=== PATIENT | male | born 1945 | race Caucasian/White ===

== ENCOUNTER → 2023-10-23 15:42 | Outpatient (REF) | payer OTHER, SELFPAY | LOC: RAD 15:42 | PROVIDERS: ATTENDING PHYSICIAN Student in an Organized Health Care Education/Training Program | DX: M25.572 Pain in left ankle and joints of left foot (principal) | CPT/HCPCS: 73610 ==

== ENCOUNTER 2024-02-14 14:52 | Emergency (ER) | payer OTHER, SELFPAY ==
[2024-02-14 14:54] VITALS: BP 147/74
--- NOTE | 2024-02-14 15:52 | ED.GENMED ---
Addendum entered and electronically signed by Gilles Rollins PA-C 02/22/24 18:04:
Diagnosis code was incorrectly entered for right hand. Please note, the injury occured to the left hand and diagnosis was changed to reflect this.
Original Note:
History of Present Illness
General
Chief Complaint: Musculo-Skeletal Complaint
Source: patient
Time Seen by Provider: 02/14/24 15:42
History of Present Illness
History of Present Illness:
78-year-old male presenting the emergency department for evaluation after he injured his left hand while closing screen door on Thursday evening. Today still had pain in between the left thumb and index finger prompting him to come to the ER
further evaluation. He is right-hand dominant, no other injuries were sustained, denies any abrasions or lacerations
Past History
Past History
ED Past Medical History: Arrthythmia, COPD (tia), HTN, Hypercholesterolemia, NIDDM and Other (BPH, hematuria, bladder stone)
ED Past Surgical History: Appendectomy, Cholecystectomy, Urological and Other (AAA repair)
Social History
Tobacco: Non-smoker
Alcohol: None
Drug: None
Personal:
Living: with family
Employment: Retired
Family History
Family History: Other (Noncontributory)
Review of Systems
Review of Systems
All Other Systems: ROS reviewed and negative except as documented in HPI and ROS
Phy Exam
Physical Exam
Physical Exam:
GENERAL: Alert , in no apparent distress
EYE: conjunctiva clear
Head: Normocephalic atraumatic
NECK: Supple,
ENT: mmm.
LUNGS: no acute respiratory distress
NEUROLOGICAL: Alert and oriented
SKIN: Warm and dry, skin intact.
MUSCULOSKELETAL: Left hand: No obvious deformity, erythema, edema, ecchymosis, abrasions or lacerations. Patient does have some mild tenderness over the MCP joint of the left thumb but has full range of motion without any difficulty. Sensation is
grossly intact to light touch. No other abnormalities appreciated
PSYCH: Normal and appropriate interaction.
Scores
Heart Failure Risk
Heart Failure Risk Score: Not Applicable
Heart Score for Chest Pain Patients
STEMI patient?: Not applicable
Withdrawal Assessment of Alcohol
Withdrawal Assessment Completed?: Not applicable
Course
Orders/Labs/Results
Orders:
Orders
02/14/24 14:59
Hand, Left 3 View [CR Hand - Left Min 3 Views] Urgent
Comment:
Reason For Exam: injury
Vital Signs
Initial and Last Documented VS:
Initial Vital Signs
Temp Pulse Resp BP Pulse Ox
98.3 F 73 16 147/74 98
02/14/24 14:54 02/14/24 14:54 02/14/24 14:54 02/14/24 14:54 02/14/24 14:54
Last Documented Vital Signs
Temp Pulse Resp BP Pulse Ox
98.3 F 73 16 147/74 98
02/14/24 14:54 02/14/24 14:54 02/14/24 14:54 02/14/24 14:54 02/14/24 14:54
MDM/Problems Addressed
Differential Diagnosis Includes:
Contusion, sprain, fracture
MDM/Problems Addressed:
78-year-old male present emergency department for evaluation after accidentally injuring his left hand while attempting to close a screen door the night prior. Still with some mild pain and swelling. X-ray was ordered from triage and ultimately
shows no fracture. Suspect contusion. NSAIDs/Tylenol as needed for pain. Otherwise stable for discharge home and outpatient management.
*Radiology
Radiology exam reviewed: preliminary read by ED provider (No fracture)
*Pulse Oximetry
Patient hypoxic: no
*Critical Care Note
Total Time (30-74mins, 75-104mins- exclusive of procedures): Not Applicable
ED Attending Note
-
Portions of this chart may have been created with voice recognition software.� Occasional wrong word or��sound alike� substitutions may have occurred due to the inherent limitations of voice recognition software.
Discharge Plan
Departure
Patient Disposition: Home (Routine Discharge)
Date of Disposition: 02/14/24
Time of Disposition: 15:52
Patient with high blood pressure during this ER visit?: Yes
Discharge Problem:
Contusion of right hand
Instructions: Contusion (DC)
Prescriptions:
No Action
simvastatin 20 MG tablet
20 mg PO HS
metformin 1,000 MG tablet
1,000 mg PO BID@0800,1700
glipizide 5 MG tablet
5 mg PO BID@0800,1700
gabapentin 300 MG capsule
300 mg PO BID
lisinopril 10 MG tablet
10 mg PO DAILY
cyanocobalamin (vitamin B-12) 1,000 mcg Tablet
1,000 mcg PO DAILY
atenolol 50 mg Tablet
25 mg PO DAILY
Trelegy Ellipta 100-62.5-25 mcg blister with device
1 inh INHALATION R DAILY
tolterodine 4 MG capsule,extended release 24hr
4 mg PO DAILY
Eliquis 5 mg Tablet
5 mg PO BID Qty: 60 0RF
meclizine 25 mg tablet
25 mg PO TID PRN (Reason: dizziness) Qty: 10 0RF
acetaminophen [Tylenol Extra Strength] 500 mg Tablet
500 mg PO TIDPRN PRN (Reason: mild pain)
albuterol sulfate 90 mcg/actuation Hfa Aerosol Inhaler
2 puff INHALATION R Q4HPRN PRN (Reason: sob)
cefdinir 300 mg Capsule
300 mg PO Q12 5 Days Qty: 10 0RF
prednisone 10 mg Tablet
See Rx Instructions .ROUTE .COMPLEX Qty: 30 0RF
Rx Instructions:
Take By Mouth:
40 mg daily x3 days, 30 mg daily x3 days,
20 mg daily x3 days, 10 mg daily x3 days.
Referrals:
Carli Morgan MD [Family Provider] -
Interventions
Interventions:
*Risk Screen - Suicide Last Done: 02/14/24 14:54
*General Assessment Last Done: 02/14/24 14:54
*Neglect/Abuse Screening Last Done: 02/14/24 14:57
*Nursing Disposition Last Done: 02/14/24 15:56
ED-Musculoskeletal Assessment Last Done: 02/14/24 15:55
Discharge Date and Time
Discharge Date/Time: 02/14/24 15:57
Print Language: TURKISH
== END 2024-02-14 15:57 | disposition home or self-care (01) ==
LOC: EMR 14:52
PROVIDERS: EMERGENCY PHYSICIAN Emergency Medicine; FAMILY PHYSICIAN Student in an Organized Health Care Education/Training Program
DX: S60.222A Contusion of left hand, initial encounter (principal); W23.2XXA Caught, crushed, jammed or pinched between a moving and stationary object, initial encounter; I10 Essential (primary) hypertension
CPT/HCPCS: 99283; 73130

== ENCOUNTER → 2024-08-27 07:16 | Outpatient (REF) | payer OTHER, SELFPAY | LOC: RAD 07:16 | PROVIDERS: ATTENDING PHYSICIAN Student in an Organized Health Care Education/Training Program | DX: R05.1 Acute cough (principal); R06.02 Shortness of breath | CPT/HCPCS: 71046 ==

== ENCOUNTER → 2024-11-07 16:22 | Outpatient (REF) | payer OTHER, SELFPAY | LOC: RAD 16:22 | PROVIDERS: ATTENDING PHYSICIAN Internal Medicine | DX: E11.69 Type 2 diabetes mellitus with other specified complication (principal); I87.2 Venous insufficiency (chronic) (peripheral); R60.0 Localized edema | CPT/HCPCS: 93971 ==

== ENCOUNTER 2024-11-16 05:13 | Emergency (ER) | payer OTHER, SELFPAY ==
[2024-11-16 05:17] VITALS: BP 157/83; BMI 33.1
[2024-11-16 05:21] LABS: Glucose - Point of Care 227 mg/dl (70-99)
--- NOTE | 2024-11-16 07:02 | ED.GENMED ---
History of Present Illness
General
Chief Complaint: Blood Sugar Problem
Source: patient
Exam Limitations: none
Time Seen by Provider: 11/16/24 05:17
Nursing documentation reviewed up to this point in time: agreed with
History of Present Illness
History of Present Illness:
79-year-old male with past medical history of diabetes on metformin, COPD, abdominal aortic aneurysm, hypertension, hyperlipidemia presents emergency department today with concerns of hyperglycemia. Patient states that he takes his blood sugar
daily in the morning he reported that his blood sugar was 198 upon awakening this morning. Patient states this concerned him and he has not had sugars as high as this before. Patient states he subsequently went to eat a bagel for breakfast and
noted that his sugar jumped up to around the 230s. Patient was concerned because he believes that this level could cause a stroke and so he reported to emergency department. He denies any nausea or vomiting, denies any fevers or chills. He denies
any chest pain or shortness of breath. He denies any lightheadedness or dizziness.
Past History
Past History
ED Past Medical History: Arrthythmia, COPD (tia), HTN, Hypercholesterolemia, NIDDM and Other (BPH, hematuria, bladder stone)
ED Past Surgical History: Appendectomy, Cholecystectomy, Urological and Other (AAA repair)
Social History
Tobacco: Non-smoker
Alcohol: None
Drug: None
Personal:
Living: with family
Employment: Retired
Family History
Family History: Other (Noncontributory)
Review of Systems
Review of Systems
All Other Systems: ROS reviewed and negative except as documented in HPI and ROS
Phy Exam
Physical Exam
Physical Exam:
General: Patient is well appearing and in no acute distress; non-toxic
Skin: Warm and dry, no rashes or lesions
Head: Normocephalic, atraumatic
Eyes: Sclera non-icteric. EOMs intact.
Cardiac: Regular rate and rhythm, no murmurs
Peripheral Vascular: No lower extremity swelling or
Pulm: Normal respiratory effort, no wheezes, rales, rhonchi
Abdomen: No abdominal tenderness to palpation
Neuro: CN II-XII intact, no focal neurologic deficits.
Psychiatric: Appropriate mood and affect.
Course
Orders/Labs/Results
Orders:
Abnormal Lab Results
11/16/24
05:18
POC Glucose 227 H mg/dl
(70-99)
Vital Signs
Initial and Last Documented VS:
Initial Vital Signs
Temp Pulse Resp BP Pulse Ox
97.7 F 86 22 157/83 97
11/16/24 05:17 11/16/24 05:17 11/16/24 05:17 11/16/24 05:17 11/16/24 05:17
Last Documented Vital Signs
Temp Pulse Resp BP Pulse Ox
97.7 F 86 22 157/83 97
11/16/24 05:17 11/16/24 05:17 11/16/24 05:17 11/16/24 05:17 11/16/24 05:30
MDM/Problems Addressed
Differential Diagnosis Includes:
Hyperglycemia
MDM/Problems Addressed:
79-year-old male presents emergency department today with concerns of hyperglycemia. His blood sugar did not increase following eating a carb heavy meal. I explained the patient that this is to be expected. Patient is concerned because she never
had sugar this high before. Does take metformin. We had a long discussion about concerning blood sugar levels and what symptoms to look out for when he should report to emergency department. Considering patient is well appearing in no acute
distress has no active symptoms at this time, I do not feel that lab work is necessary at this time. I did stress that patient should take his recorded log of blood sugar levels to his primary doctor for appointment this week and perhaps he may
need adjustment in his medications. Patient stressed understanding. Patient stable for discharge. Case reviewed with my attending.
*Critical Care Note
Total Time (30-74mins, 75-104mins- exclusive of procedures): Not Applicable
ED Attending Note
-
Portions of this chart may have been created with voice recognition software.� Occasional wrong word or��sound alike� substitutions may have occurred due to the inherent limitations of voice recognition software.
Discharge Plan
Departure
Patient Disposition: Home (Routine Discharge)
Date of Disposition: 11/16/24
Time of Disposition: 06:14
Patient with high blood pressure during this ER visit?: Yes
Condition: Good
Discharge Problem:
Acute hyperglycemia, Type 2 diabetes mellitus
Instructions: High blood sugar in adults - ED discharge instructions, BLOOD PRESSURE
Prescriptions:
No Action
simvastatin 20 MG tablet
20 mg PO HS
metformin 1,000 MG tablet
1,000 mg PO BID@0800,1700
glipizide 5 MG tablet
5 mg PO BID@0800,1700
gabapentin 300 MG capsule
300 mg PO BID
lisinopril 10 MG tablet
10 mg PO DAILY
cyanocobalamin (vitamin B-12) 1,000 mcg Tablet
1,000 mcg PO DAILY
atenolol 50 mg Tablet
25 mg PO DAILY
Trelegy Ellipta 100-62.5-25 mcg blister with device
1 inh INHALATION R DAILY
tolterodine 4 MG capsule,extended release 24hr
4 mg PO DAILY
Eliquis 5 mg Tablet
5 mg PO BID Qty: 60 0RF
acetaminophen [Tylenol Extra Strength] 500 mg Tablet
500 mg PO TIDPRN PRN (Reason: mild pain)
Referrals:
UNKNOWN - PT DOES,NOT KNOW [Family Provider] -
Activity Restrictions/Additional Instructions:
Please bring your log of blood sugar readings to your primary care provider. Please call today for an appointment. It is possible that your medications may need to be adjusted.
PLEASE RETURN TO EMERGENCY DEPARTMENT SHOULD YOU DEVELOP FEVERS OR CHILLS, ABDOMINAL PAIN, CHEST PAIN CONFUSION, SEIZURE-LIKE ACTIVITY, NAUSEA OR VOMITING, CONFUSION, OR ANY OTHER SIGNS OR SYMPTOMS WORRISOME TO YOU.
Interventions
Interventions:
*Risk Screen - Suicide Last Done: 11/16/24 05:17
*General Assessment Last Done: 11/16/24 05:17
*Neglect/Abuse Screening Last Done: 11/16/24 05:17
*ED COVID-19 Vaccine History Last Done: 11/16/24 05:25
*Nursing Disposition Last Done: 11/16/24 06:32
ED- Neurological Assessment Last Done: 11/16/24 05:25
Discharge Date and Time
Discharge Date/Time: 11/16/24 06:33
Print Language: CITIZEN OF [place]
== END 2024-11-16 06:33 | disposition home or self-care (01) ==
LOC: EMR 05:13
PROVIDERS: EMERGENCY PHYSICIAN Student in an Organized Health Care Education/Training Program
DX: E11.65 Type 2 diabetes mellitus with hyperglycemia (principal); I10 Essential (primary) hypertension; E78.00 Pure hypercholesterolemia, unspecified
CPT/HCPCS: 99282; 82962

== ENCOUNTER → 2025-02-08 11:43 | Outpatient (REF) | payer OTHER, SELFPAY | LOC: RAD 11:43 | PROVIDERS: ATTENDING PHYSICIAN Student in an Organized Health Care Education/Training Program | DX: M79.672 Pain in left foot (principal); M79.89 Other specified soft tissue disorders | CPT/HCPCS: 73630 ==

== ENCOUNTER → 2025-02-21 07:23 | Outpatient (REF) | payer OTHER, SELFPAY | LOC: RAD 07:23 | PROVIDERS: ATTENDING PHYSICIAN Student in an Organized Health Care Education/Training Program | DX: M79.89 Other specified soft tissue disorders (principal); M79.672 Pain in left foot | CPT/HCPCS: 93971 ==

== ENCOUNTER → 2025-02-22 10:07 | Outpatient (REF) | payer OTHER, SELFPAY | LOC: RAD 10:07 | PROVIDERS: ATTENDING PHYSICIAN Student in an Organized Health Care Education/Training Program | DX: M79.672 Pain in left foot (principal); M79.89 Other specified soft tissue disorders | CPT/HCPCS: 93922; 93925 ==

== ENCOUNTER 2025-04-12 08:44 | Emergency (ER) | payer OTHER, SELFPAY ==
[2025-04-12 08:48] VITALS: BP 150/72
[2025-04-12 09:00] VITALS: BP 143/72
--- NOTE | 2025-04-12 09:20 | ED.GENMED ---
History of Present Illness
General
Chief Complaint: Cardiac Symptoms
Source: patient
Time Seen by Provider: 04/12/25 09:09
History of Present Illness
History of Present Illness:
79-year-old male with past medical history of CVA, COPD, atrial fibrillation, status post AAA repair, hypertension, hyperlipidemia, [id number] diabetes presenting to the emergency department for evaluation of left shoulder pain that has
been ongoing for 1 week, overnight and into this morning the pain is now within his chest and radiating down his left arm which is what prompted him to come to the ER this morning. Patient initially stated the pain does not seem to be exacerbated
or alleviated by anything but at the end of the exam patient did mention to me that laying flat seem to have made the symptoms worse and radiated down his left arm more. He cannot think of any triggers that may have precipitated the pain. He
denies any other associated symptoms including shortness of breath, palpitations, diaphoresis, exertional dyspnea, cough, fevers or infectious symptoms, lower extremity edema, abdominal pain, nausea, vomiting. Patient follows with automotive welder,
Zayra. He does report going on an annual basis, cannot remember the last time he did get an echocardiogram or stress test. Social history was noted for former smoker (quit 5 years ago) and former alcohol use but has not had any alcoholic beverages
in over 30 years.
Past History
Past History
ED Past Medical History: Arrthythmia, COPD (tia), HTN, Hypercholesterolemia, NIDDM and Other (BPH, hematuria, bladder stone)
ED Past Surgical History: Appendectomy, Cholecystectomy, Urological and Other (AAA repair)
Social History
Tobacco: Former smoker
Alcohol: None
Drug: None
Personal:
Living: with family
Employment: Retired
Family History
Family History: Other (Noncontributory)
Review of Systems
Review of Systems
All Other Systems: ROS reviewed and negative except as documented in HPI and ROS
Phy Exam
Physical Exam
Physical Exam:
GENERAL: Alert , in no apparent distress
HEAD: Normocephalic atraumatic
EYE: Clear conjunctiva
NECK: Supple
ENT: o/p clr, mmm.
CARDIAC: Regular rate and rhythm .
LUNGS: Clear breath sounds bilaterally, no acute respiratory distress, no wheezes/rales/rhonchi
ABDOMEN: Soft, without focal tenderness, no r/g, no cvat
NEUROLOGICAL: Alert and oriented, no focal neuro deficits
SKIN: Warm and dry, dusky changes to the bilateral upper extremities is baseline per the patient when
MUSCULOSKELETAL: Trace ankle bilateral edema, well perfused.
PSYCH: Normal and appropriate interaction.
Scores
Heart Failure Risk
Heart Failure Risk Score: Not Applicable
Heart Score for Chest Pain Patients
STEMI patient?: No
History: Moderately Suspicious
ECG: Normal
Age: >/= 65 years
Risk Factors: >/= 3 Risk Factors or History of CAD
Troponin: </= Normal Limit
Heart Score for Chest Pain Patients: 5
Heart Score Risk: 20.3% MACE over next 6 weeks
Withdrawal Assessment of Alcohol
Withdrawal Assessment Completed?: Not applicable
Course
Orders/Labs/Results
Orders:
Orders
04/12/25
Electrocardiogram (*1) Stat
Comment: DONE
04/12/25 08:45
EKG [Electrocardiogram (*1)] Urgent
Reason for Study: Chest Pain
EKG- Treatment ONCE
04/12/25 09:10
CR Chest - 2 Views Urgent
Comment:
Reason For Exam: shoulder/chest pain
04/12/25 09:57
Complete Blood Count/With Diff Urgent
Comprehensive Metabolic Panel Urgent
Troponin I Urgent
04/12/25 14:04
Troponin I Urgent
Abnormal Lab Results
04/12/25
09:57
MCV 94.8 H fL
(80.0-94.0)
MCHC 32.7 L g/dL
(33.0-37.0)
MPV 10.9 H fL
(7.4-10.4)
Abs Immat Gran (auto) 0.1 H 10^3/uL
(0-0.05)
Absolute Lymphs (auto) 1.1 L 10^3/uL
(1.2-3.4)
Absolute Monos (auto) 0.8 H 10^3/uL
(0.1-0.6)
Immature Gran % 0.8 H %
(0-0.5)
Lymphocytes % 14.4 L %
(20.5-51.1)
Monocytes % 11.0 H %
(1.7-9.3)
Chloride 109 H mmol/L
(98-107)
BUN 35 H mg/dl
(9-20)
04/12/25 09:57
04/12/25 09:57
Vital Signs
Initial and Last Documented VS:
Initial Vital Signs
Temp Pulse Resp BP Pulse Ox
97.5 F 70 18 150/72 97
04/12/25 08:48 04/12/25 08:48 04/12/25 08:48 04/12/25 08:48 04/12/25 08:48
Last Documented Vital Signs
Temp Pulse Resp BP Pulse Ox
97.5 F 68 19 120/67 95
04/12/25 08:48 04/12/25 13:45 04/12/25 13:45 04/12/25 13:00 04/12/25 15:00
MDM/Problems Addressed
Differential Diagnosis Includes:
Atypical ACS presentation
Dissection/aneurysm
musculoskeletal shoulder pain
Shingles
Pneumothorax
No symptoms to suggest infectious etiology
valvular dysfunction
Cardiac arrhythmia
MDM/Problems Addressed:
79-year-old male presenting the ER for evaluation of left shoulder pain that has been ongoing for 1 week, last night and into this morning pain now within the chest and radiating down the left arm. States he feels better now after taking 2 Tylenol
around 5 AM but still with the discomfort. No other associated symptoms or anginal equivalents. EKG done in triage is nonischemic and without any ectopy. Will check labs and chest x-ray. Disposition pending.
*Pulse Oximetry
SaO2: 97
Oxygen Mode of Delivery: Room air
Patient hypoxic: no
*EKG
Heart Rate: 74
Rate: normal
Rhythm: sinus
Ischemia: no ischemia
*Extractor Filler Interpretation
Rate: normal
Heart Rate: 72
Rhythm: sinus
*Critical Care Note
Total Time (30-74mins, 75-104mins- exclusive of procedures): Not Applicable
Data Reviewed
Review of Other/Old Records Reveals: Labs and Records
Comment
Comment:
Echocardiogram in August 2023 showing normal biventricular size and systolic function, EF of 60 to 65%
repeat troponin was delayed due to blood hemolysis and repeated attempts at blood draw.
Patient Management
Escalation/DeEscalation of care consider admission/obs:
Repeat troponin negative. Patient feels comfortable being discharged home. Chest pain hotline notified. Patient aware of return precautions to the ER.
ED Attending Note
-
Portions of this chart may have been created with voice recognition software.� Occasional wrong word or��sound alike� substitutions may have occurred due to the inherent limitations of voice recognition software.
Discharge Plan
Departure
Patient Disposition: Home (Routine Discharge)
Date of Disposition: 04/12/25
Time of Disposition: 14:52
Patient with high blood pressure during this ER visit?: Yes
Discharge Problem:
Chest pain
Instructions: Chest Pain CBC Follow Up
Prescriptions:
No Action
simvastatin 20 MG tablet
20 mg PO HS
metformin 1,000 MG tablet
1,000 mg PO BID@0800,1700
glipizide 5 MG tablet
5 mg PO BID@0800,1700
gabapentin 300 MG capsule
300 mg PO BID
lisinopril 10 MG tablet
10 mg PO DAILY
cyanocobalamin (vitamin B-12) 1,000 mcg Tablet
1,000 mcg PO DAILY
atenolol 50 mg Tablet
25 mg PO DAILY
Trelegy Ellipta 100-62.5-25 mcg blister with device
1 inh INHALATION R DAILY
tolterodine 4 MG capsule,extended release 24hr
4 mg PO DAILY
Eliquis 5 mg Tablet
5 mg PO BID Qty: 60 0RF
acetaminophen [Tylenol Extra Strength] 500 mg Tablet
500 mg PO TIDPRN PRN (Reason: mild pain)
Referrals:
Carli Morgan MD [Family Provider, Internal Medicine]
Interventions
Interventions:
*Risk Screen - Suicide Last Done: 04/12/25 08:48
*General Assessment Last Done: 04/12/25 08:48
*Neglect/Abuse Screening Last Done: 04/12/25 08:48
*ED- Fall Risk Assessment Last Done: 04/12/25 15:16
*ED COVID-19 Vaccine History Last Done: 04/12/25 08:48
*Nursing Disposition Last Done: 04/12/25 15:16
ED- Pulmonary Assessment Last Done: 04/12/25 10:15
ED- Cardiac Assessment Last Done: 04/12/25 10:15
Discharge Date and Time
Discharge Date/Time: 04/12/25 15:17
Print Language: SPANISH
[2025-04-12 10:00] VITALS: BP 119/69
[2025-04-12 10:04] LABS: Hematocrit 45.5 % (39.0-52.0); Hemoglobin 14.9 g/dL (13.0-18.0); Mean Corp Hgb Conc. 32.7 g/dL (33.0-37.0); Mean Corpuscular Volume 94.8 fL (80.0-94.0); Nucleated Red Blood Cells % 0 % (-); Platelet Count 150 10^3/uL (130-400); Red Cell Dist. Width 13.2 % (11.5-14.5)
[2025-04-12 10:30] LABS: ALT (SGPT) 21 U/L (0-50); AST (SGOT) 21 U/L (17-59); Albumin 4.0 g/dl (3.5-5.0); Alkaline Phosphatase 59 U/L (38-126); Blood Urea Nitrogen 35 mg/dl (9-20); Calcium 10.0 mg/dl (8.4-10.2); Carbon Dioxide 24 mmol/L (22-30); Chloride 109 mmol/L (98-107); Glucose 80 mg/dl (70-99); Potassium 4.8 mmol/L (3.5-5.1); Sodium 140 mmol/L (135-145); Total Protein 6.4 g/dl (6.3-8.2); eGFR > 60.00
[2025-04-12 10:35] LABS: Troponin I < 0.012 ng/ml
[2025-04-12 11:00] VITALS: BP 118/73
[2025-04-12 12:01] VITALS: BP 131/83
[2025-04-12 13:00] VITALS: BP 120/67
[2025-04-12 14:42] LABS: Troponin I < 0.012 ng/ml
== END 2025-04-12 15:17 | disposition home or self-care (01) ==
LOC: EMR 08:44
PROVIDERS: Physician Assistant Medical; EMERGENCY PHYSICIAN Emergency Medicine; FAMILY PHYSICIAN Student in an Organized Health Care Education/Training Program
DX: R07.9 Chest pain, unspecified (principal); E11.9 Type 2 diabetes mellitus without complications; I48.91 Unspecified atrial fibrillation; I10 Essential (primary) hypertension; E78.00 Pure hypercholesterolemia, unspecified; J44.9 Chronic obstructive pulmonary disease, unspecified; N40.0 Benign prostatic hyperplasia without lower urinary tract symptoms; Z79.84 Long term (current) use of oral hypoglycemic drugs; Z79.01 Long term (current) use of anticoagulants; Z86.73 Personal history of transient ischemic attack (TIA), and cerebral infarction without residual deficits; Z87.891 Personal history of nicotine dependence
CPT/HCPCS: 99284; 71046; 80053; 84484; 85025; 93005

== ENCOUNTER → 2025-05-03 07:18 | Outpatient (REF) | payer OTHER, SELFPAY | LOC: RAD 07:18 | PROVIDERS: ATTENDING PHYSICIAN Internal Medicine; FAMILY PHYSICIAN Student in an Organized Health Care Education/Training Program | DX: G45.9 Transient cerebral ischemic attack, unspecified (principal); I65.23 Occlusion and stenosis of bilateral carotid arteries | CPT/HCPCS: 93880 ==

== ENCOUNTER → 2025-05-09 13:25 | Outpatient (REF) | payer OTHER, SELFPAY ==
[2025-05-09 14:56] LABS: Hematocrit 47.4 % (39.0-52.0); Hemoglobin 15.4 g/dL (13.0-18.0); Mean Corp Hgb Conc. 32.5 g/dL (33.0-37.0); Mean Corpuscular Volume 95.4 fL (80.0-94.0); Nucleated Red Blood Cells % 0 % (-); Platelet Count 166 10^3/uL (130-400); Red Cell Dist. Width 13.4 % (11.5-14.5)
[2025-05-09 15:17] LABS: ALT (SGPT) 23 U/L (0-50); AST (SGOT) 20 U/L (17-59); Albumin 4.0 g/dl (3.5-5.0); Alkaline Phosphatase 66 U/L (38-126); Blood Urea Nitrogen 41 mg/dl (9-20); Calcium 10.3 mg/dl (8.4-10.2); Carbon Dioxide 27 mmol/L (22-30); Chloride 105 mmol/L (98-107); Glucose 81 mg/dl (70-99); Potassium 4.9 mmol/L (3.5-5.1); Sodium 138 mmol/L (135-145); Total Protein 6.8 g/dl (6.3-8.2); eGFR 43.02
== END ==
LOC: REG 13:25
DX: R07.9 Chest pain, unspecified (principal); I48.91 Unspecified atrial fibrillation; J43.9 Emphysema, unspecified
CPT/HCPCS: 36415; 71046; 80053; 83880; 85025